=== PATIENT | male | born 1935 | race Caucasian/White ===

== ENCOUNTER 2023-07-28 15:14 | Observation (INO) | payer MEDICARE ==
[2023-07-28 16:05] LABS: #Basophils 0.1 10x3/uL (0.0-0.2); #Eosinphils 0.4 10x3/uL (0.0-0.5); #Monocytes 0.7 10x3/uL (0.0-1.1); #Neutrophils 5.2 10x3/uL (1.5-8.4); %Basophils 0.6 % (0.0-2.0); %Eosinophils 4.5 % (0.0-6.0); %Lymphocytes 22.7 % (18.0-47.0); %Monocytes 8.4 % (0.0-10.0); %Neutrophils 62.8 % (40.0-75.0); Hematocrit 48.3 % (38.8-50.0); Hemoglobin 16.3 g/dL (13.5-17.5); Mean Corpuscular HGB CONC 33.7 g/dL (32.0-36.0); Mean Corpuscular Hemoglobin 32.8 pg (27.0-33.0); Mean Corpuscular Volume 97.2 fl (81.2-95.1); Mean Platelet Volume 10.7 fl (7.4-10.4); Platelet Count 318 10x3/uL (150-450); RBC Distribution Width 13.5 % (11.5-14.5); Red Blood Cell (RBC) Count 4.97 10x6/uL (4.32-5.72); White Blood Cell (WBC) Count 8.3 10x3/uL (3.5-10.5)
[2023-07-28] MEDS ORDERED: Aspirin Chewable 81 MG TAB ONE (16:08)
[2023-07-28 16:18] LABS: ALT (SGPT) 18 U/L (8-55); AST (SGOT) 21 U/L (5-34); Albumin 4.4 g/dL (3.4-4.8); Alkaline Phosphatase 48 U/L (40-110); Anion Gap 16 mmol/L (10-20); BUN (Urea Nitrogen) 29 mg/dL (8.4-25.7); Bilirubin, Total 0.7 mg/dL (0.2-1.2); Calc. Creatinine Clearance 0 mL/min (70-130); Calcium 9.6 mg/dL (7.8-10.44); Carbon Dioxide 22 mmol/L (23-31); Chloride 106 mmol/L (98-107); Estimated GFR 50; Globulin 2.7 g/dL (2.4-3.5); Glucose 213 mg/dL (83-110); Lipase 40 U/L (8-78); Potassium 4.4 mmol/L (3.5-5.1); Protein, Total 7.1 g/dL (5.8-8.1); Sodium 140 mmol/L (136-145)
[2023-07-28 16:21] LABS: Troponin I 0.014 ng/mL (< 0.028)
[2023-07-28] MEDS ORDERED: Nitroglycerin 0.4 MG TAB (25 Tab Bottle) SL PRN (16:50)
[2023-07-28] MEDS ORDERED: Acetaminophen 650 MG Suppository PR PRN (16:50)
[2023-07-28] MEDS ORDERED: Dextrose 50% Abboject 50 ML SYRINGE SLOW IVP PRN (16:50)
[2023-07-28] MEDS ORDERED: Glucagon 1 MG/ML KIT IM PRN (16:50)
[2023-07-28] MEDS ORDERED: Dextrose 5% in Water 1,000 ML IV PRN (16:50)
[2023-07-28] MEDS ORDERED: Ondansetron PF 4 MG/2 ML Vial IVP PRN (16:50)
[2023-07-28] MEDS ORDERED: Ondansetron ODT 4 MG TAB PO PRN (16:50)
[2023-07-28] MEDS ORDERED: HumaLOG 300 UNITS/3 ML VIAL SC PRN ×2 (16:50)
[2023-07-28 17:56] LABS: Troponin I 0.011 ng/mL (< 0.028)
[2023-07-28 21:31] LABS: Troponin I 0.012 ng/mL (< 0.028)
[2023-07-28] MEDS: Famotidine 20 MG TAB PO SCH (21:54)
[2023-07-28 23:00] VITALS: BMI 25.4
[2023-07-29] MEDS ORDERED: Losartan 25 MG TAB PO SCH ×2 (01:30→21:00)
[2023-07-29] MEDS ORDERED: Isosorbide Mononitrate 30 MG ER.TAB PO SCH (01:30)
[2023-07-29 03:58] LABS: Anion Gap 13 mmol/L (10-20); BUN (Urea Nitrogen) 25 mg/dL (8.4-25.7); Calc. Creatinine Clearance 55 mL/min (70-130); Calcium 9.2 mg/dL (7.8-10.44); Carbon Dioxide 22 mmol/L (23-31); Cardiac Risk 2.7 (Less than 4.5); Chloride 108 mmol/L (98-107); Cholesterol 107 mg/dl (< 200 Desired); Estimated GFR 61; Glucose 138 mg/dL (83-110); HDL Cholesterol 39 mg/dL (>60 Neg Risk); LDL Cholesterol, Calculated 56 mg/dL; Potassium 4.3 mmol/L (3.5-5.1); Sodium 139 mmol/L (136-145); Triglycerides 61 mg/dL (Less than 150)
[2023-07-29 04:03] LABS: Troponin I 0.016 ng/mL (< 0.028)
[2023-07-29] MEDS: Acetaminophen 325 MG TAB PO PRN ×2 (04:17→09:25)
[2023-07-29] MEDS ORDERED: Aspirin Chewable 81 MG TAB PO SCH (09:00)
[2023-07-29] MEDS ORDERED: [UNRECOGNIZED DRUG - OTHER] PO SCH (09:00)
[2023-07-29] MEDS: Famotidine 20 MG TAB PO SCH (09:25)
[2023-07-29 12:14] VITALS: BP 142/73; TEMP 97.9
[2023-07-29 13:42] LABS: Hemoglobin A1c 7.8 % (4.0-6.0)
[2023-07-29] MEDS ORDERED: Isosorbide Mononitrate 60 MG ER.TAB PO SCH (21:00)
== END 2023-07-29 13:59 | disposition home or self-care (01) ==
LOC: SUATTDRO 15:14 → CSHERS 15:14 → CSHERHOLD 16:50 → CSHTELE 20:26
PROVIDERS: ADMIT Family Medicine; ATTEND Family Medicine
DX: R07.89 Other chest pain (principal); I10 Essential (primary) hypertension; E11.9 Type 2 diabetes mellitus without complications; I25.10 Atherosclerotic heart disease of native coronary artery without angina pectoris; E78.5 Hyperlipidemia, unspecified; Z88.1 Allergy status to other antibiotic agents; Z87.891 Personal history of nicotine dependence; Z79.84 Long term (current) use of oral hypoglycemic drugs; Z79.899 Other long term (current) drug therapy
CPT/HCPCS: 71045; 80048; 80053; 80061; 82962 ×2; 83036; 83690; 83880; 84484 ×3; 85025; 93005 ×2; 96372; G0378 ×3; 36415; 36416; 93010; J1650